=== PATIENT | female | born 1970 | race Caucasian/White ===

== ENCOUNTER 2022-05-05 12:51 | Emergency (ER) | payer MEDICAID, OTHER ==
[~2022-05-05] VITALS: Ht 152.4 cm; Wt 63.5 kg
--- NOTE | 2022-05-05 13:10 | NUR ---
51 y/o F BIB self from home; referred from PCP for abnormal labs. Patient A&Ox4, ambulatory, states elevated blood sugar results from PCP. Patient reports dysuria, dehydration, and subjective fever for 2-3 days. Triage AccuChek 469. Patient denies abdominal pain, nausea, vomiting, diarrhea, constipation, urinary symptoms, chest pain, chills. 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 Bed locked in lowest position, side rails x 1. PMH: DM, HTN, HLD Meds: Janumet, lisinopril, atorvastatin, glipzide, gabapentin NKDA
[2022-05-05 13:13] VITALS: BP 118/79
[2022-05-05 13:47] LABS: APPEARANCE,URINE SL CLOUDY (CLEAR); BILIRUBIN,URINE NEGATIVE (NEGATIVE); BLOOD, URINE NEGATIVE (NEGATIVE); COLOR,URINE YELLOW (YELLOW); LEUKOCYTE ESTERASE ,URINE TRACE (NEGATIVE); NITRITE, URINE NEGATIVE (NEGATIVE); UGLUCOSE 3+ (NEGATIVE)
--- NOTE | 2022-05-05 13:49 | NUR ---
Blood sample handed to CPT Teresita at ER bedside
[2022-05-05] MEDS ORDERED: NACL 0.9% 2,000 ML IV ONE (13:50)
[2022-05-05 14:28] LABS: BASOPHILS % (AUTO) 0.4 % (0.0-2.0); EOSINOPHILS % (AUTO) 0.3 % (0.0-4.0); HEMATOCRIT 40.1 % (36-48); HEMOGLOBIN 13.4 g/dL (12.0-16.0); LYMPHOCYTES # (AUTO) 1.8 K/uL (2.5-16.5); LYMPHOCYTES % (AUTO) 28.7 % (20.5-51.1); MEAN CORPUSCULAR HEMOGLOBIN 30 pg (27-31); MEAN CORPUSCULAR HGB CONC 34 g/dL (33-37); MONOCYTES # (AUTO) 0.3 K/uL (0.8-1.0); MONOCYTES % (AUTO) 4.8 % (1.7-9.3); NEUTROPHILS # (AUTO) 4.1 K/uL (1.8-7.7); NEUTROPHILS % (AUTO) 65.8 % (42.2-75.2); PLATELET COUNT (AUTO) 172 K/uL (140-450); RED CELL DISTRIBUTION WIDTH 13.4 % (11.6-13.7); WHITE BLOOD COUNT (AUTO) 6.2 K/uL (4.8-10.8)
[2022-05-05 14:41] LABS: ALBUMIN 4.2 g/dL (3.4-5.0); ANION GAP 13.3 (8-16); ASPARTATE AMINOTRANSFERASE 22 U/L (15-37); CARBON DIOXIDE 28.2 mmol/L (21-32); CHLORIDE 97 mmol/L (98-107); CREATININE 0.7 mg/dL (0.6-1.3); GFR ARICAN-AMERICAN 114 mL/min (>90); POTASSIUM 4.5 mmol/L (3.5-5.1); SODIUM SERUM 134 mmol/L (136-145); TOTAL BILIRUBIN 0.6 mg/dL (0.0-1.0); UREA NITROGEN, BLOOD 21 mg/dL (7-18)
[2022-05-05 14:47] LABS: GLUCOSE 520 mg/dL (74-106)
[2022-05-05 14:57] LABS: ACETONE, SERUM NEGATIVE (NEGATIVE)
[2022-05-05] MEDS ORDERED: NACL 0.9% 1,000 ML IV ONE (15:45)
[2022-05-05] MEDS ORDERED: METF1TAB5 PO ×2 (15:59→16:03)
[2022-05-05] MEDS ORDERED: GLIP10TA12 PO ×2 (15:59→16:03)
[2022-05-05 16:08] VITALS: BP 137/66
--- NOTE | 2022-05-05 16:14 | NUR ---
Patient discharged with v/s stable. Written and verbal after care instructions given and explained. Patient alert, oriented and verbalized understanding of instructions. Ambulatory with steady gait. All questions addressed prior to discharge. ID band removed. Patient advised to follow up with PMD. Rx of Janumet 50-1,000mg, Glipzide given. Patient educated on indication of medication including possible reaction and side effects. Opportunity to ask questions provided and answered.
== END 2022-05-05 16:14 | disposition home or self-care (01) ==
LOC: MED 12:51
DX: E11.65 Type 2 diabetes mellitus with hyperglycemia (principal); E78.5 Hyperlipidemia, unspecified; R50.9 Fever, unspecified; E86.0 Dehydration; R30.0 Dysuria; I10 Essential (primary) hypertension
CPT/HCPCS: 36415; 80053; 81003; 82009; 82948; 84702; 85025; 96360; 96361; 99283; J7030; 81002

== ENCOUNTER 2023-07-07 12:02 | Emergency (ER) | payer OTHER ==
[~2023-07-07] VITALS: Ht 149.9 cm; Wt 68.0 kg
[~2023-07-07 12:02] MED LIST: GLIP10TA12 PO; METF1TAB5 PO
[2023-07-07 12:26] VITALS: BP 127/70; PULSE 63; RESP 16; TEMP 98; O2SAT 97
[2023-07-07 13:39] LABS: BASOPHILS % (AUTO) 0.4 % (0.0-2.0); EOSINOPHILS % (AUTO) 0.6 % (0.0-4.0); HEMATOCRIT 40.8 % (36-48); HEMOGLOBIN 13.6 g/dL (12.0-16.0); LYMPHOCYTES # (AUTO) 1.9 K/uL (2.5-16.5); LYMPHOCYTES % (AUTO) 30.7 % (20.5-51.1); MEAN CORPUSCULAR HEMOGLOBIN 30 pg (27-31); MEAN CORPUSCULAR HGB CONC 33 g/dL (33-37); MEAN CORPUSCULAR VOLUME 90.8 fL (80-94); MONOCYTES # (AUTO) 0.4 K/uL (0.8-1.0); MONOCYTES % (AUTO) 6.2 % (1.7-9.3); NEUTROPHILS # (AUTO) 3.8 K/uL (1.8-7.7); NEUTROPHILS % (AUTO) 62.1 % (42.2-75.2); PLATELET COUNT (AUTO) 176 K/uL (140-450); RED BLOOD CELL COUNT(AUTO) 4.49 MIL/uL (4.20-5.40); RED CELL DISTRIBUTION WIDTH 13.4 % (11.6-13.7); WHITE BLOOD COUNT (AUTO) 6.1 K/uL (4.8-10.8)
[2023-07-07 13:55] LABS: ALBUMIN 3.8 g/dL (3.4-5.0); ANION GAP 9.8 (8-16); CALCIUM 9.3 mg/dL (8.5-10.1); CARBON DIOXIDE 32.2 mmol/L (21-32); CREATININE 1.2 mg/dL (0.6-1.3); TOTAL BILIRUBIN 0.4 mg/dL (0.0-1.0); TOTAL PROTEIN, SERUM 7.8 g/dL (6.4-8.2)
[2023-07-07 14:03] LABS: APPEARANCE,URINE CLEAR (CLEAR); BILIRUBIN,URINE NEGATIVE (NEGATIVE); BLOOD, URINE NEGATIVE (NEGATIVE); COLOR,URINE YELLOW (YELLOW); LEUKOCYTE ESTERASE ,URINE NEGATIVE (NEGATIVE); NITRITE, URINE NEGATIVE (NEGATIVE); PH,URINE 6.5 (5.0-9.0); PROTEIN,URINE NEGATIVE (NEGATIVE); UGLUCOSE 3+ (NEGATIVE); UROBILINOGEN,URINE 0.2 EU/dL (0.2 - 1)
[2023-07-07] MEDS ORDERED: KETOROLAC 30 MG/ML VIAL IVP ONE (14:10)
[2023-07-07] MEDS ORDERED: ONDANSETRON 4 MG/2 ML VIAL IVP ONE (14:10)
[2023-07-07] MEDS: NACL 0.9% 1,000 ML IV SCH ×3 (14:32→16:44)
[2023-07-07] MEDS ORDERED: NACL 0.9% 1,000 ML IV ONE (15:55)
[2023-07-07] MEDS ORDERED: MELO-174 PO (15:59)
[2023-07-07] MEDS ORDERED: METO-485 PO (15:59)
[2023-07-07 16:37] VITALS: BP 153/84; PULSE 68; RESP 20; TEMP 97.8; O2SAT 98
== END 2023-07-07 16:39 | disposition home or self-care (01) ==
LOC: MED 12:02
DX: R10.12 Left upper quadrant pain (principal); E11.65 Type 2 diabetes mellitus with hyperglycemia; I10 Essential (primary) hypertension; E78.5 Hyperlipidemia, unspecified; Z79.899 Other long term (current) drug therapy
CPT/HCPCS: 36415; 74176; 80053; 81003; 81025; 83690; 85025; 96361; 96374; 96375; 99285; J1885; J2405; J7030

== ENCOUNTER 2023-08-08 23:38 | Observation (INO) | payer OTHER ==
[~2023-08-08] VITALS: Ht 160 cm; Wt 76.2 kg
[~2023-08-08 23:38] MED LIST changes: +MELO-174 PO; +METO-485 PO
[2023-08-08 23:50] VITALS: BP 146/80; PULSE 87; RESP 19; TEMP 97.9; O2SAT 96
[2023-08-09] VITALS (9 sets, daily range): BP systolic 118–146; BP diastolic 58–75; PULSE 65–82; RESP 13–19; TEMP 97–99.5; O2SAT 96–100
[2023-08-09] MEDS ORDERED: LORazepam 1 MG TAB PO ONE (00:25)
[2023-08-09 00:43] LABS: BASOPHILS % (AUTO) 0.7 % (0.0-2.0); EOSINOPHILS % (AUTO) 0.5 % (0.0-4.0); HEMATOCRIT 36.8 % (36-48); HEMOGLOBIN 12.5 g/dL (12.0-16.0); LYMPHOCYTES # (AUTO) 2.4 K/uL (2.5-16.5); LYMPHOCYTES % (AUTO) 39.4 % (20.5-51.1); MEAN CORPUSCULAR HEMOGLOBIN 31 pg (27-31); MEAN CORPUSCULAR HGB CONC 34 g/dL (33-37); MEAN CORPUSCULAR VOLUME 90.4 fL (80-94); MONOCYTES # (AUTO) 0.5 K/uL (0.8-1.0); MONOCYTES % (AUTO) 7.5 % (1.7-9.3); NEUTROPHILS # (AUTO) 3.1 K/uL (1.8-7.7); NEUTROPHILS % (AUTO) 51.9 % (42.2-75.2); PLATELET COUNT (AUTO) 173 K/uL (140-450); RED BLOOD CELL COUNT(AUTO) 4.07 MIL/uL (4.20-5.40); RED CELL DISTRIBUTION WIDTH 13.6 % (11.6-13.7)
[2023-08-09] MEDS ORDERED: KETOROLAC 30 MG/ML VIAL IM ONE (01:00)
[2023-08-09 01:15] LABS: ANION GAP 13.8 (8-16); CALCIUM 9.2 mg/dL (8.5-10.1); CARBON DIOXIDE 30.3 mmol/L (21-32); CREATININE 0.7 mg/dL (0.6-1.3); POTASSIUM 4.1 mmol/L (3.5-5.1)
[2023-08-09] MEDS ORDERED: ASPIRIN 325 MG TAB PO ONE (03:30)
[2023-08-09] MEDS ORDERED: MORPHINE SULFATE 2 MG/ML SYR IVP PRN (05:05)
[2023-08-09] MEDS ORDERED: DEXTROSE 50% 50 ML SYR IVP PRN ×2 (05:05→15:55)
[2023-08-09] MEDS ORDERED: ACETAMINOPHEN 325 MG TAB PO PRN (05:05)
[2023-08-09] MEDS ORDERED: LORazepam 2 MG/ML VIAL IVP PRN (05:05)
[2023-08-09] MEDS ORDERED: HYDROcodone/APAP 5/325 MG 1 TAB TAB PO PRN (05:05)
[2023-08-09] MEDS ORDERED: ONDANSETRON 4 MG/2 ML VIAL IVP PRN (05:05)
[2023-08-09] MEDS: BLOOD GLUCOSE MONITORING 1 DEV DEV FS SCH ×4 (08:29→20:04)
[2023-08-09] MEDS: ENOXAPARIN 40 MG/0.4 ML SYR SUBQ SCH (10:02)
[2023-08-09] MEDS: INSULIN LISPRO SLIDING SCALE 100 UNITS/ML VIAL SUBQ PRN ×3 (11:39→20:10)
[2023-08-09] MEDS ORDERED: INSULIN LISPRO SLIDING SCALE 100 UNITS/ML VIAL SUBQ PRN (15:55)
[2023-08-09] MEDS ORDERED: BLOOD GLUCOSE MONITORING 1 DEV DEV FS SCH (16:30)
[2023-08-09] MEDS: INSULIN LANTUS 100 UNITS/ML 10 ML VIAL SUBQ SCH (16:39)
[2023-08-10] VITALS (9 sets, daily range): BP systolic 115–134; BP diastolic 57–82; PULSE 65–107; RESP 17–19; TEMP 97.2–98.1; O2SAT 100
[2023-08-10] MEDS: BLOOD GLUCOSE MONITORING 1 DEV DEV FS SCH ×3 (06:24→15:39)
[2023-08-10] MEDS: INSULIN LISPRO SLIDING SCALE 100 UNITS/ML VIAL SUBQ PRN ×3 (06:27→15:40)
[2023-08-10 06:52] LABS: BASOPHILS % (AUTO) 0.3 % (0.0-2.0); EOSINOPHILS # (AUTO) 0.1 K/uL (0-0.4); EOSINOPHILS % (AUTO) 1.2 % (0.0-4.0); HEMATOCRIT 36.7 % (36-48); HEMOGLOBIN 12.5 g/dL (12.0-16.0); LYMPHOCYTES % (AUTO) 38.2 % (20.5-51.1); MEAN CORPUSCULAR HEMOGLOBIN 30 pg (27-31); MEAN CORPUSCULAR HGB CONC 34 g/dL (33-37); MEAN CORPUSCULAR VOLUME 89.6 fL (80-94); MONOCYTES # (AUTO) 0.4 K/uL (0.8-1.0); MONOCYTES % (AUTO) 6.7 % (1.7-9.3); NEUTROPHILS # (AUTO) 2.9 K/uL (1.8-7.7); NEUTROPHILS % (AUTO) 53.6 % (42.2-75.2); PLATELET COUNT (AUTO) 174 K/uL (140-450); RED CELL DISTRIBUTION WIDTH 13.7 % (11.6-13.7); WHITE BLOOD COUNT (AUTO) 5.3 K/uL (4.8-10.8)
[2023-08-10 07:41] LABS: ALBUMIN 3.2 g/dL (3.4-5.0); ANION GAP 13.3 (8-16); CALCIUM 8.7 mg/dL (8.5-10.1); CARBON DIOXIDE 27.9 mmol/L (21-32); CREATININE 0.6 mg/dL (0.6-1.3); MAGNESIUM 1.7 mg/dL (1.8-2.4); POTASSIUM 4.2 mmol/L (3.5-5.1); TOTAL BILIRUBIN 0.3 mg/dL (0.0-1.0); TOTAL PROTEIN, SERUM 6.9 g/dL (6.4-8.2)
[2023-08-10] MEDS: INSULIN LANTUS 100 UNITS/ML 10 ML VIAL SUBQ SCH (08:28)
[2023-08-10] MEDS: ENOXAPARIN 40 MG/0.4 ML SYR SUBQ SCH (08:29)
[2023-08-10] MEDS ORDERED: ATORVASTATIN 20 MG TAB PO SCH (09:00)
[2023-08-10] MEDS ORDERED: ASPIRIN 81 MG TAB.CHEW PO SCH (09:00)
[2023-08-10] MEDS ORDERED: LOSARTAN 25 MG TAB PO SCH (09:00)
[2023-08-10] MEDS ORDERED: ATOR20TA40 PO (18:18)
[2023-08-10] MEDS ORDERED: LOSA-269 PO (18:18)
== END 2023-08-10 18:10 | disposition home or self-care (01) ==
LOC: MED 23:38 → MTU 08-09 05:06
PROVIDERS: ADMIT Student in an Organized Health Care Education/Training Program; ATTEND Student in an Organized Health Care Education/Training Program
DX: R07.89 Other chest pain (principal); Z20.822 Contact with and (suspected) exposure to COVID-19; I10 Essential (primary) hypertension; E11.9 Type 2 diabetes mellitus without complications; E78.5 Hyperlipidemia, unspecified; Z79.899 Other long term (current) drug therapy
CPT/HCPCS: 36415; 71045; 80048; 80053; 82948; 83735; 84484; 85025; 87081; 87426; 93005; 96372; 99285; C8929; G0378; J1650; J1815; J1885; Q0092

== ENCOUNTER 2024-05-16 13:20 | Inpatient (IN) | payer OTHER ==
[~2024-05-16] VITALS: Ht 162.6 cm; Wt 72.6 kg
[~2024-05-16 13:20] MED LIST changes: +ATOR20TA40 PO; +LOSA-269 PO
[2024-05-16 13:26] VITALS: BP 83/49; PULSE 75; RESP 15; TEMP 97.9; O2SAT 93
[2024-05-16] MEDS: NACL 0.9% 1,000 ML IV ONE ×2 (14:25→16:20)
[2024-05-16 14:50] LABS: BASOPHILS % (AUTO) 0.2 % (0.0-2.0); EOSINOPHILS % (AUTO) 0.3 % (0.0-4.0); HEMATOCRIT 42.7 % (36-48); LYMPHOCYTES # (AUTO) 1.3 K/uL (2.5-16.5); LYMPHOCYTES % (AUTO) 20.9 % (20.5-51.1); MEAN CORPUSCULAR HEMOGLOBIN 30 pg (27-31); MEAN CORPUSCULAR HGB CONC 33 g/dL (33-37); MONOCYTES # (AUTO) 0.4 K/uL (0.8-1.0); MONOCYTES % (AUTO) 5.7 % (1.7-9.3); NEUTROPHILS # (AUTO) 4.6 K/uL (1.8-7.7); NEUTROPHILS % (AUTO) 72.9 % (42.2-75.2); PLATELET COUNT (AUTO) 179 K/uL (140-450); RED BLOOD CELL COUNT(AUTO) 4.64 MIL/uL (4.20-5.40); RED CELL DISTRIBUTION WIDTH 13.7 % (11.6-13.7); WHITE BLOOD COUNT (AUTO) 6.2 K/uL (4.8-10.8)
[2024-05-16 14:58] LABS: ANION GAP 15.7 (8-16); CALCIUM 9.5 mg/dL (8.5-10.1); CARBON DIOXIDE 27.2 mmol/L (21-32); CREATININE 0.7 mg/dL (0.6-1.3); POTASSIUM 3.9 mmol/L (3.5-5.1)
[2024-05-16 15:05] LABS: BILIRUBIN,DIRECT 0.1 mg/dL (0.0-0.3); TOTAL BILIRUBIN 0.4 mg/dL (0.0-1.0); TOTAL PROTEIN, SERUM 8.2 g/dL (6.4-8.2)
[2024-05-16 17:02] LABS: APPEARANCE,URINE CLEAR (CLEAR); BILIRUBIN,URINE NEGATIVE (NEGATIVE); BLOOD, URINE NEGATIVE (NEGATIVE); LEUKOCYTE ESTERASE ,URINE NEGATIVE (NEGATIVE); NITRITE, URINE POSITIVE (NEGATIVE); PROTEIN,URINE NEGATIVE (NEGATIVE); UGLUCOSE 3+ (NEGATIVE); UROBILINOGEN,URINE 0.2 EU/dL (0.2 - 1)
[2024-05-16 17:03] LABS: COLOR,URINE AMBER (YELLOW)
[2024-05-16 17:07] LABS: BACTERIA,URINE 10-30 (MOD) /HPF (None Seen); RBC,URINE 0-5 /HPF (0-5); SQUAMOUS EPITHELIAL CELL,UR 0-3 (FEW) /LPF (0-3 (FEW)); WBC,URINE 0-5 /HPF (0-5)
[2024-05-16] MEDS ORDERED: cefTRIAXone 1,000 MG VIAL ONE (17:07)
[2024-05-16] MEDS ORDERED: AZITHROMYCIN 500 MG INJ VIAL IV ONE (17:07)
[2024-05-16] MEDS: AZITHROMYCIN 500 MG in DEXTROSE 5% 250 ML IV ONE (17:24)
[2024-05-16] MEDS ORDERED: MORPHINE SULFATE 2 MG/ML SYR IVP PRN (19:45)
[2024-05-16] MEDS ORDERED: ACETAMINOPHEN 325 MG TAB PO PRN (19:45)
[2024-05-16] MEDS ORDERED: ONDANSETRON 4 MG/2 ML VIAL IVP PRN (19:45)
[2024-05-16] MEDS ORDERED: GABA100C PO (21:01)
[2024-05-16] MEDS ORDERED: METF-1139 PO (21:01)
[2024-05-16] MEDS ORDERED: LISI-951 PO (21:01)
[2024-05-16] MEDS ORDERED: PANT40EC PO (21:01)
[2024-05-16 21:30] VITALS: BP 111/63; PULSE 70; RESP 70; TEMP 96.6; O2SAT 97
[2024-05-16 21:58] VITALS: PULSE 70; RESP 16; O2SAT 97
[2024-05-16] MEDS: NACL 0.9% 1,000 ML IV SCH (23:14)
[2024-05-16] MEDS ORDERED: DEXTROSE 50% 50 ML SYR IVP PRN (23:30)
[2024-05-17 04:00] VITALS: BP 101/58; PULSE 70; RESP 20; TEMP 97; O2SAT 92
[2024-05-17 04:54] LABS: BASOPHILS % (AUTO) 0.3 % (0.0-2.0); EOSINOPHILS % (AUTO) 0.7 % (0.0-4.0); HEMATOCRIT 34.7 % (36-48); HEMOGLOBIN 11.4 g/dL (12.0-16.0); LYMPHOCYTES # (AUTO) 1.9 K/uL (2.5-16.5); LYMPHOCYTES % (AUTO) 39.2 % (20.5-51.1); MEAN CORPUSCULAR HEMOGLOBIN 30 pg (27-31); MEAN CORPUSCULAR HGB CONC 33 g/dL (33-37); MEAN CORPUSCULAR VOLUME 92.3 fL (80-94); MONOCYTES # (AUTO) 0.4 K/uL (0.8-1.0); MONOCYTES % (AUTO) 8.1 % (1.7-9.3); NEUTROPHILS # (AUTO) 2.5 K/uL (1.8-7.7); NEUTROPHILS % (AUTO) 51.7 % (42.2-75.2); PLATELET COUNT (AUTO) 138 K/uL (140-450); RED BLOOD CELL COUNT(AUTO) 3.76 MIL/uL (4.20-5.40); WHITE BLOOD COUNT (AUTO) 4.7 K/uL (4.8-10.8)
[2024-05-17 05:02] LABS: ANION GAP 12.2 (8-16); CALCIUM 8.1 mg/dL (8.5-10.1); CARBON DIOXIDE 25.4 mmol/L (21-32); CREATININE 0.6 mg/dL (0.6-1.3); POTASSIUM 3.6 mmol/L (3.5-5.1)
[2024-05-17] MEDS: BLOOD GLUCOSE MONITORING 1 DEV DEV FS SCH (06:49)
[2024-05-17] MEDS: INSULIN LISPRO SLIDING SCALE 100 UNITS/ML VIAL SUBQ PRN (06:51)
[2024-05-17 08:00] VITALS: BP 105/54; PULSE 78; RESP 17; TEMP 97.4; O2SAT 92
[2024-05-17 20:00] VITALS: BP 149/74; PULSE 66; RESP 18; TEMP 98.7; O2SAT 97
[2024-05-18 04:00] VITALS: BP 131/80; PULSE 62; RESP 18; TEMP 97.2; O2SAT 96
[2024-05-18 08:00] VITALS: PULSE 65; RESP 17; O2SAT 96
[2024-05-18 12:00] VITALS: BP 131/80; PULSE 65; RESP 17; TEMP 97.2; O2SAT 96
[2024-05-18] MEDS: INSULIN LANTUS 100 UNITS/ML 10 ML VIAL SUBQ SCH ×2 (13:09→13:11)
[2024-05-18 20:00] VITALS: BP 129/75; PULSE 71; RESP 18; TEMP 97.6; O2SAT 93
[2024-05-19 04:00] VITALS: BP 133/64; PULSE 65; RESP 18; TEMP 97.3; O2SAT 94
[2024-05-19 08:00] VITALS: BP 139/75; PULSE 68; RESP 20; TEMP 96.9; O2SAT 96
[2024-05-19] MEDS ORDERED: LEVO750T75 PO ×2 (09:34→14:24)
[2024-05-19 10:06] VITALS: BP 139/75; PULSE 68; RESP 20; TEMP 96.9
== END 2024-05-19 15:35 | disposition home or self-care (01) | DRG 137 ==
LOC: MED 13:20 → MMU 19:46
PROVIDERS: ADMIT Hospitalist; ATTEND Hospitalist
DX: J15.69 Pneumonia due to other Gram-negative bacteria (principal); J96.01 Acute respiratory failure with hypoxia; E11.00 Type 2 diabetes mellitus with hyperosmolarity without nonketotic hyperglycemic-hyperosmolar coma (NKHHC); N39.0 Urinary tract infection, site not specified; B96.20 Unspecified Escherichia coli [E. coli] as the cause of diseases classified elsewhere; E78.5 Hyperlipidemia, unspecified; I10 Essential (primary) hypertension; Z79.899 Other long term (current) drug therapy; J15.9 Unspecified bacterial pneumonia
CPT/HCPCS: 36415; 70450; 71045; 80048; 80076; 81001; 82948; 83735; 85025; 87081; 87086; 87186; 93005; 96361; 96365; 96368; 99285; J0456; J0696; J1815; J7060